=== PATIENT | female | born 1960 | race Caucasian/White ===

== ENCOUNTER 2021-01-15 23:45 | Observation (INO) | payer BC ==
[~2021-01-15] VITALS: Ht 157.5 cm; Wt 85.7 kg
[2021-01-16] MEDS ORDERED: QUESTRAN LIGHT 44 GM PO (01:12)
[2021-01-16] MEDS ORDERED: LISINOPRIL20 MG PO (01:12)
[2021-01-16] MEDS ORDERED: SERTRALINE HCL100 MG PO (01:13)
[2021-01-16] MEDS ORDERED: ESOMEPRAZOLE MA40 MG PO (01:13)
[2021-01-16] MEDS ORDERED: FEOSOL325 MG PO (01:15)
[2021-01-16 03:58] LABS: RED BLOOD COUNT 3.98 M/UL (4.00-5.10); WHITE BLOOD COUNT 10.6 K/UL (4.5-11.0)
[2021-01-16] MEDS ORDERED: HYDROCODON-ACE1 EAC2 PO (13:32)
--- NOTE | 2021-01-16 13:56 | NUR ---
1250 - DR MURILLO AT BEDSIDE. PAIN MEDICATION GIVEN. PT PLACED IN MILD TRENDLEBERG WITH MANUAL TRACTION PLACED ON RIGHT ANKLE. ANKLE MANUALLY MANIPULATED PER DR MURILLO AND FIBERGLASS SPLINT PLACED. CARLOS WRAP APPLIED PER DR MURILLO. PT TOLERATED PROCEDURE WELL.
[2021-01-17 07:12] LABS: HEMOGLOBIN 10.6 gm/dl (12.3-15.3); RED BLOOD COUNT 3.79 M/UL (4.00-5.10)
[2021-01-17 07:17] LABS: WHITE BLOOD COUNT 6.4 K/UL (4.5-11.0)
[2021-01-17] MEDS ORDERED: ASPIRIN 325MG325 MG PO (10:42)
--- NOTE | 2021-01-17 14:56 | NUR ---
ORDERS NOTED FOR WC, BSC AND POLAR ICE. POLAR ICE EQUIPMENT GIVEN TO PT. INSTRUCTIONS ON USE GIVEN TO PT AND SPOUSE. SPOKE WITH [employer] THEY ARE UNABLE TO FURNISH WC TIL TUESDAY. PT STATES SHE HAS WC FROM FRIEND AND IS WILLING TO WAIT TIL TUESDAY. BSC GIVEN TO PT FROM STOCK. FORM SIGNED AND FAXED TO [facility] ON [facility]. [facility] AWARE OF BSC GIVEN TO PT.
== END 2021-01-17 14:48 | disposition home or self-care (01) ==
LOC: M/S 23:45 → CDU 01-16 14:39 → M/S 01-16 14:39
PROVIDERS: Internal Medicine; ADMIT Internal Medicine
DX: S82.851A Displaced trimalleolar fracture of right lower leg, initial encounter for closed fracture (principal); S82.832A Other fracture of upper and lower end of left fibula, initial encounter for closed fracture; S92.352A Displaced fracture of fifth metatarsal bone, left foot, initial encounter for closed fracture; I10 Essential (primary) hypertension; E78.5 Hyperlipidemia, unspecified; M79.7 Fibromyalgia; G47.33 Obstructive sleep apnea (adult) (pediatric); Z88.1 Allergy status to other antibiotic agents; Z88.2 Allergy status to sulfonamides; Z91.040 Latex allergy status; Z79.82 Long term (current) use of aspirin; Z79.899 Other long term (current) drug therapy; Z20.822 Contact with and (suspected) exposure to COVID-19; W10.9XXA Fall (on) (from) unspecified stairs and steps, initial encounter
CPT/HCPCS: 36415; 73610; 73700; 80048; 85025; 85027; 85610; 85730; 93005; G0378; G0379; J1170; J1650; J1885; J2270; U0002

== ENCOUNTER 2021-01-30 07:35 | Day surgery (SDC) | payer BC ==
[~2021-01-30] VITALS: Ht 157.5 cm; Wt 85.7 kg
[~2021-01-30 07:35] MED LIST: ASPIRIN 325MG325 MG PO; ESOMEPRAZOLE MA40 MG PO; FEOSOL325 MG PO; HYDROCODON-ACE1 EAC2 PO; LISINOPRIL20 MG PO; QUESTRAN LIGHT 44 GM PO; SERTRALINE HCL100 MG PO
[2021-01-30 08:54] LABS: RED BLOOD COUNT 4.26 M/UL (4.00-5.10); WHITE BLOOD COUNT 7.4 K/UL (4.5-11.0)
[2021-01-30] MEDS ORDERED: VITAMIN B12-FO1 EACH PO (08:54)
[2021-01-31] MEDS ORDERED: ASPIRIN 325MG325 MG PO (10:48)
[2021-01-31] MEDS ORDERED: ZOFRAN 4 MG TAB4 MG SL (11:10)
== END 2021-01-31 12:04 | disposition home or self-care (01) ==
LOC: OR 07:35 → M/S 16:01 → OR 01-31 12:04
PROVIDERS: Orthopaedic Surgery
DX: S82.851A Displaced trimalleolar fracture of right lower leg, initial encounter for closed fracture (principal); S82.892A Other fracture of left lower leg, initial encounter for closed fracture; S92.352A Displaced fracture of fifth metatarsal bone, left foot, initial encounter for closed fracture; W17.89XA Other fall from one level to another, initial encounter; I10 Essential (primary) hypertension; D64.9 Anemia, unspecified; K21.9 Gastro-esophageal reflux disease without esophagitis; G47.30 Sleep apnea, unspecified; E66.9 Obesity, unspecified; Z79.899 Other long term (current) drug therapy; Z79.82 Long term (current) use of aspirin; Z79.891 Long term (current) use of opiate analgesic; Z88.2 Allergy status to sulfonamides; Z88.1 Allergy status to other antibiotic agents; Z91.040 Latex allergy status
CPT/HCPCS: 36415; 73600; 76000; 80048; 85027; 93005; C1713; J0690; J1100; J1170; J2001; J2250; J2370; J2405; J2550; J2704; J2710; J2795; J3010; J7120